=== PATIENT | female | born 1960 | race Asian ===

== ENCOUNTER 2019-11-12 12:42 | Outpatient (CLI) | payer BC ==
[2019-11-12] MEDS ORDERED: OLME20TA17 PO (13:08)
[2019-11-12] MEDS ORDERED: ROSU10TA2 PO (13:08)
[2019-11-12] MEDS ORDERED: PROP20TA PO (13:08)
[2019-11-12] MEDS ORDERED: LEVO75TA5 PO (13:08)
== END 2019-11-12 23:59 | disposition home or self-care (01) ==
LOC: STAR 12:42
PROVIDERS: ATTEND Orthopaedic Surgery
DX: Z01.818 Encounter for other preprocedural examination (principal); M17.12 Unilateral primary osteoarthritis, left knee; M17.11 Unilateral primary osteoarthritis, right knee
CPT/HCPCS: 93005

== ENCOUNTER 2019-11-15 05:18 | Observation (INO) | payer BC ==
[~2019-11-15] VITALS: Ht 160 cm; Wt 88.3 kg
[~2019-11-15 05:18] MED LIST: LEVO75TA5 PO; OLME20TA17 PO; PROP20TA PO; ROSU10TA2 PO
[2019-11-15] MEDS ORDERED: LEVOTHYROXINE 75 MCG TABLET PO SCH (06:00)
[2019-11-15] MEDS ORDERED: TRANEXAMIC ACID 100 MG/ML, 10ML ONE (06:02)
[2019-11-15] MEDS ORDERED: BUPIVACAINE/PF-EPI 0.5% 1:200K ONE (06:02)
[2019-11-15] MEDS ORDERED: FENTANYL PF 250 MCG/5ML ONE ×2 (06:16→07:24)
[2019-11-15] MEDS ORDERED: LACTATED RINGERS 1,000 ML IV SCH (06:16)
[2019-11-15] MEDS ORDERED: MIDAZOLAM 1 MG/ML, 2ML ONE (06:16)
[2019-11-15] MEDS ORDERED: ROCURONIUM 10MG/ML,5ML ONE (06:20)
[2019-11-15] MEDS ORDERED: GLYCOPYRROLATE 0.2MG/1ML, 5ML ONE (06:20)
[2019-11-15] MEDS ORDERED: CEFAZOLIN 1,000 MG ONE (06:20)
[2019-11-15] MEDS ORDERED: ONDANSETRON 2MG/ML, 2ML ONE (06:20)
[2019-11-15] MEDS ORDERED: NEOSTIGMINE 1 MG/ML, 10ML ONE (06:20)
[2019-11-15] MEDS ORDERED: PROPOFOL 10 MG/ML, 20ML ONE (06:20)
[2019-11-15] MEDS ORDERED: DEXAMETHASONE 4 MG/ML, 1ML ONE (06:20)
[2019-11-15] MEDS ORDERED: PHENYLEPHRINE 10 MG/ML ONE (06:21)
[2019-11-15] MEDS ORDERED: SCOPOLAMINE 1MG PATCH TD SCH (06:30)
[2019-11-15] MEDS ORDERED: GABAPENTIN 300 MG CAPSULE PO ONE (06:30)
[2019-11-15] MEDS ORDERED: CHLORHEXIDINE 15 ML UDC MM ONE (06:30)
[2019-11-15] MEDS ORDERED: ACETAMINOPHEN 500 MG TABLET PO ONE (06:30)
[2019-11-15] MEDS ORDERED: BUPIVACAINE LIPOSOME/PF 10ML INFIL ONE (06:30)
[2019-11-15] MEDS ORDERED: HYDROmorphone 1 MG/ML, 1ML INJ IVPush PRN (07:00)
[2019-11-15] MEDS ORDERED: SENNA/DOCUSATE TABLET PO PRN (07:00)
[2019-11-15] MEDS ORDERED: ONDANSETRON 2MG/ML, 2ML IVPush PRN (07:00)
[2019-11-15] MEDS ORDERED: DIPHENHYDRAMINE 50 MG CAPSULE PO PRN (07:00)
[2019-11-15] MEDS ORDERED: hydrALAzine 20 MG/ML, 1ML ONE ×3 (07:00→09:54)
[2019-11-15] MEDS ORDERED: PROMETHAZINE 25 MG/ML, 1ML IVPush PRN (07:00)
[2019-11-15] MEDS ORDERED: LABETALOL 5MG/ML, 20ML IV PRN (07:00)
[2019-11-15] MEDS ORDERED: MEPERIDINE/PF 25MG/0.5ML IVPush PRN (07:00)
[2019-11-15] MEDS ORDERED: FENTANYL PF 100 MCG/2ML IV PRN (07:00)
[2019-11-15] MEDS: ACETAMINOPHEN 325 MG TABLET PO SCH ×3 (07:00→16:21)
[2019-11-15] MEDS ORDERED: MAGNESIUM HYDROXIDE 8%, 30ML UDC PO PRN (07:00)
[2019-11-15] MEDS ORDERED: hydrALAzine 20 MG/ML, 1ML IV PRN (07:00)
[2019-11-15] MEDS ORDERED: morphine SULFATE 10 MG/ML, 1ML IVPush PRN (07:00)
[2019-11-15] MEDS ORDERED: OXYcodone 5 MG/5 ML ORAL.SOL UDC PO PRN (07:00)
[2019-11-15] MEDS ORDERED: HALOPERIDOL 5 MG/ML IV PRN (07:00)
[2019-11-15] MEDS ORDERED: BISACODYL 10 MG SUPP PR PRN (07:00)
[2019-11-15] MEDS ORDERED: MORPHINE SULFATE 4 MG/ML, 1ML IVPush PRN (07:00)
[2019-11-15] MEDS ORDERED: FENTANYL PF 100 MCG/2ML ONE (08:05)
[2019-11-15] MEDS ORDERED: DOCUSATE 100 MG CAPSULE PO SCH (09:00)
[2019-11-15] MEDS ORDERED: LOSARTAN 100 MG TAB PO SCH (09:00)
[2019-11-15] MEDS ORDERED: PROPRANOLOL 20 MG TABLET PO SCH (09:00)
[2019-11-15 11:13] VITALS: BP 142/83
[2019-11-15] MEDS: OXYcodone IR 5MG TABLET PO SCH ×2 (11:22→16:21)
[2019-11-15] MEDS ORDERED: KETOROLAC 30 MG/1 ML IV SCH (11:30)
[2019-11-15] MEDS: D5%-0.45% NACL 1,000 ML IV SCH ×2 (11:55→14:15)
[2019-11-15] MEDS ORDERED: CEFAZOLIN PMX 1GM/50ML 50 ML IVPB SCH (14:00)
[2019-11-15 15:01] VITALS: BP 119/73
[2019-11-15] MEDS ORDERED: ATORVASTATIN 40 MG TABLET PO SCH (21:00)
[2019-11-16] MEDS ORDERED: ASPIRIN 325 MG TABLET PO SCH (06:00)
== END 2019-11-15 17:06 | disposition home or self-care (01) ==
LOC: OUT 05:18 → ORIP 07:16 → 4NE 10:58
PROVIDERS: ADMIT Orthopaedic Surgery; ATTEND Orthopaedic Surgery
DX: Z03.818 Encounter for observation for suspected exposure to other biological agents ruled out (principal); M17.11 Unilateral primary osteoarthritis, right knee; E03.9 Hypothyroidism, unspecified; I10 Essential (primary) hypertension; E78.5 Hyperlipidemia, unspecified; J45.909 Unspecified asthma, uncomplicated; Z79.899 Other long term (current) drug therapy
CPT/HCPCS: 27447; 73560; 87081; 96365; 96375; 97162; G0378; J0360; J0690; J1100; J1885; J2250; J2370; J2405; J2704; J2710; J3010; U0001; C1713; C1776

== ENCOUNTER → 2019-12-31 | Outpatient (CLI) | payer BC ==
[~2019-12-31] MED LIST changes: +ASPI-496 PO; +Calcium PO; +FLAX340P PO; +Inderal PO; +MECL-101 PO; +Tumeric PO
[2019-12-31 14:23] LABS: BASOPHILS # (AUTO) 0.06 x10^3/uL (0-0.1); BASOPHILS % (AUTO) 1 % (0-1); EOSINOPHILS # (AUTO) 0.33 x10^3/uL (0-0.4); EOSINOPHILS % (AUTO) 6 % (1-7); LYMPHOCYTES # (AUTO) 1.77 x10^3/uL (1-3.4); LYMPHOCYTES % (AUTO) 32 % (22-44); MD NO; MEAN CORPUSCULAR HEMOGLOBIN 29.6 pg (27.0-34.8); MEAN CORPUSCULAR HGB CONC 32.2 g/dL (32.4-35.8); MEAN PLATELET VOLUME 7.2 fL (7.4-10.4); MONOCYTES # (AUTO) 0.62 x10^3/uL (0.2-0.8); MONOCYTES % (AUTO) 11 % (2-9); NEUTROPHILS # (AUTO) 2.77 x10^3/uL (1.8-6.8); NEUTROPHILS % (AUTO) 50 % (42-75); PLATELET COUNT 345 x10^3/uL (130-400); RED BLOOD COUNT 4.37 x10^6/uL (3.82-5.3); RED CELL DISTRIBUTION WIDTH 14.3 % (9.6-15.2)
[2019-12-31 14:33] LABS: ANION GAP 5 mmol/L (5-15); CALCIUM 9.4 mg/dL (8.5-10.1); CHLORIDE 109 mmol/L (98-107); INTERNATIONAL NORMALIZED RATIO 0.93 (0.93-1.1); PROTHROMBIN TIME 9.9 Seconds (9.6-11.5)
== END | disposition home or self-care (01) ==
LOC: STAR 13:03
PROVIDERS: ATTEND Orthopaedic Surgery
DX: Z01.818 Encounter for other preprocedural examination (principal); M17.12 Unilateral primary osteoarthritis, left knee
CPT/HCPCS: 36415; 80048; 83036; 85025; 85610; 85730; 87081

== ENCOUNTER 2020-01-10 08:55 | Observation (INO) | payer BC ==
[~2020-01-10] VITALS: Ht 160 cm; Wt 86.4 kg
[~2020-01-10 08:55] MED LIST changes: +BUPIVACAINE LIPOSOME/PF 10ML INFIL ONE; +BUPIVACAINE/PF-EPI 0.5% 1:200K ONE; +TRANEXAMIC ACID 100 MG/ML, 10ML ONE
[2020-01-10] MEDS ORDERED: LACTATED RINGERS 1,000 ML IV SCH (09:20)
[2020-01-10 09:25] VITALS: BP 138/85
[2020-01-10] MEDS ORDERED: CHLORHEXIDINE 15 ML UDC MM ONE (09:30)
[2020-01-10] MEDS ORDERED: CHLORHEXIDINE 15 ML UDC ONE (09:32)
[2020-01-10] MEDS ORDERED: FENTANYL PF 250 MCG/5ML ONE (09:53)
[2020-01-10] MEDS ORDERED: MIDAZOLAM 1 MG/ML, 2ML ONE (09:53)
[2020-01-10] MEDS ORDERED: D5%-0.45% NACL 1,000 ML IV SCH (10:33)
[2020-01-10] MEDS ORDERED: SENNA/DOCUSATE TABLET PO PRN (11:00)
[2020-01-10] MEDS ORDERED: OXYcodone IR 5MG TABLET PO PRN (11:00)
[2020-01-10] MEDS ORDERED: KETOROLAC 30 MG/1 ML IV SCH (11:00)
[2020-01-10] MEDS ORDERED: DIPHENHYDRAMINE 50 MG CAPSULE PO PRN (11:00)
[2020-01-10] MEDS ORDERED: ONDANSETRON 4 MG TABLET PO PRN (11:00)
[2020-01-10] MEDS ORDERED: BISACODYL 10 MG SUPP PR PRN (11:00)
[2020-01-10] MEDS ORDERED: MORPHINE SULFATE 4 MG/ML, 1ML IVPush PRN (11:00)
[2020-01-10] MEDS ORDERED: OXYcodone 5 MG/5 ML ORAL.SOL UDC PO PRN (11:30)
[2020-01-10] MEDS ORDERED: ALBUTEROL SULFATE 2.5 MG/3 ML NPPB PRN (11:30)
[2020-01-10] MEDS ORDERED: hydrALAzine 20 MG/ML, 1ML IV PRN (11:30)
[2020-01-10] MEDS ORDERED: LORazepam 2 MG/ML, 1ML IVPush PRN (11:30)
[2020-01-10] MEDS ORDERED: ACETAMINOPHEN 325 MG TABLET PO PRN (11:30)
[2020-01-10] MEDS ORDERED: HYDROmorphone 1 MG/ML, 1ML INJ IVPush PRN (11:30)
[2020-01-10] MEDS ORDERED: LABETALOL 5MG/ML, 20ML IV PRN (11:30)
[2020-01-10] MEDS ORDERED: MEPERIDINE/PF 25MG/0.5ML IVPush PRN (11:30)
[2020-01-10] MEDS ORDERED: PROMETHAZINE 25 MG/ML, 1ML IVPush PRN (11:30)
[2020-01-10] MEDS ORDERED: BUPIVACAINE/PF 0.5% ONE (11:31)
[2020-01-10] MEDS ORDERED: LIDOCAINE-MPF 2% ,5ML ONE (11:32)
[2020-01-10] MEDS ORDERED: CEFAZOLIN 1,000 MG ONE (11:32)
[2020-01-10] MEDS ORDERED: ONDANSETRON 2MG/ML, 2ML ONE (11:32)
[2020-01-10] MEDS ORDERED: DEXAMETHASONE 4 MG/ML, 1ML ONE (11:32)
[2020-01-10] MEDS ORDERED: PROPOFOL 10 MG/ML, 20ML ONE (11:32)
[2020-01-10] MEDS ORDERED: ACETAMINOPHEN 650 MG/20.3 ML UDC ONE (12:31)
[2020-01-10] MEDS ORDERED: FENTANYL PF 100 MCG/2ML ONE ×2 (12:31→12:42)
[2020-01-10] MEDS ORDERED: OXYcodone 5 MG/5 ML ORAL.SOL UDC ONE (12:32)
[2020-01-10] MEDS: FENTANYL PF 100 MCG/2ML IV PRN ×3 (12:35→13:10)
[2020-01-10] MEDS ORDERED: TRANEXAMIC ACID 1,000 MG in SODIUM CHLORIDE 0.9% 100 ML IV ONE (13:30)
[2020-01-10] MEDS: ACETAMINOPHEN 500 MG TABLET PO SCH ×2 (15:58→17:00)
[2020-01-10 16:54] VITALS: BP 147/84
[2020-01-10] MEDS ORDERED: CEFAZOLIN PMX 1GM/50ML 50 ML IVPB SCH (19:00)
[2020-01-10] MEDS ORDERED: DOCUSATE 100 MG CAPSULE PO SCH (21:00)
[2020-01-10] MEDS ORDERED: ASPIRIN 325 MG TABLET PO SCH (21:00)
[2020-01-10] MEDS ORDERED: ATORVASTATIN 40 MG TABLET PO SCH (21:00)
[2020-01-11] MEDS ORDERED: MECLIZINE 25 MG TABLET PO SCH (09:00)
[2020-01-11] MEDS ORDERED: LEVOTHYROXINE 75 MCG TABLET PO SCH (09:00)
[2020-01-11] MEDS ORDERED: PROPRANOLOL 20 MG TABLET PO SCH (09:00)
[2020-01-11] MEDS ORDERED: LOSARTAN 100 MG TAB PO SCH (09:00)
== END 2020-01-10 17:44 | disposition home or self-care (01) ==
LOC: OUT 08:55 → ORIP 11:08 → 4NE 13:51
PROVIDERS: ADMIT Orthopaedic Surgery; ATTEND Orthopaedic Surgery
DX: Z03.818 Encounter for observation for suspected exposure to other biological agents ruled out (principal); M17.12 Unilateral primary osteoarthritis, left knee; J45.909 Unspecified asthma, uncomplicated; I10 Essential (primary) hypertension; E78.5 Hyperlipidemia, unspecified; Z79.899 Other long term (current) drug therapy
CPT/HCPCS: 27447; 36415; 73560; 87635; 96374; 97162; C1713; C1776; G0378; J0690; J1100; J1885; J2250; J2405; J2704; J3010; J3490; J7120; Q0162; S0020